=== PATIENT | female | born 1990 | race Caucasian/White ===

== ENCOUNTER 2018-05-27 09:45 | Outpatient (CLI) | payer OTHER ==
[~2018-05-27] VITALS: Ht 152.4 cm; Wt 39.9 kg
[~2018-05-27 09:45] MED LIST: ADVIL100 M1 PO; CODE1TAB37 PO; PANADOL MAXIMU500 MG PO
== END 2018-05-27 10:00 | disposition home or self-care (01) ==
LOC: OFIC 805 09:45
DX: E04.1 Nontoxic single thyroid nodule (principal); H61.23 Impacted cerumen, bilateral

== ENCOUNTER 2018-07-28 09:30 | Outpatient (CLI) | payer OTHER ==
[~2018-07-28 09:30] MED LIST changes: +VOLTAREN100 GM TD
== END 2018-07-28 09:32 | disposition home or self-care (01) ==
LOC: SONOGRAMA 09:30
DX: E04.1 Nontoxic single thyroid nodule (principal)